=== PATIENT | male | born 1975 | race Caucasian/White ===

== ENCOUNTER 2016-10-25 13:58 | Emergency (ER) | payer OTHER ==
[2016-10-25 14:13] LABS: MANUAL DIFF NEEDED? NO
--- NOTE | 2016-10-25 14:13 | EKG Report ---
Test Performed on : 10/25/2016 2:02:55 PM Test Reason : CHEST PAIN Blood Pressure : / mmHG Vent. Rate : 062 BPM Atrial Rate : 062 BPM P-R Int : 152 ms QRS Dur : 120 ms QT Int : 422 ms P-R-T Axes : 021 -10 013 degrees QTc Int : 428 ms Normal sinus rhythm. Nonspecific intraventricular conduction delay Borderline ECG No previous ECGs available Unconfirmed Result
[2016-10-25 14:16] LABS: BASO% 0.7 % (0.0-0.8); EOS% 3.3 % (0.0-10.0); HEMATOCRIT 40.4 % (42.0-52.0); HEMOGLOBIN 13.6 g/dL (14.0-18.0); IMM GRAN# 0.01 X1000 (0.0-0.04); IMM GRAN% 0.2 % (0.0-0.5); MCH 28.8 PG (27-31); MCHC 33.7 g/dL (33-37); MCV 85.6 FL (81-99); MONO# 0.48 X1000 (0.11-0.59); MONO% 7.8 % (1.7-9.3); MPV 9.5 FL (7.4-10.4); PLT 251 X1000 (130-400); RBC 4.72 XMIL (4.7-6.1)
[2016-10-25 14:30] LABS: AGAP 12; ALBUMIN 4.3 g/dL (3.5-5.0); ALKALINE PHOSPHATASE 96 U/L (32-122); BUN 16 mg/dL (8-22); CALCIUM 8.8 mg/dL (8.8-10.2); CHLORIDE 101 mmol/L (98-107); CK PROFILE 121 U/L (24-204); COSMO 278; GOT 23 U/L (10-34); GPT 20 U/L (10-44); MAGNESIUM 1.8 mg/dL (1.5-2.7); POTASSIUM 3.3 mmol/L (3.5-5.1); SODIUM 137 mmol/L (136-145); TCO2 24 mmol/L (25-35); TOTAL PROTEIN 6.5 g/dL (6.3-8.3)
[2016-10-25 14:36] LABS: INR 0.86 (0.86-1.15)
--- NOTE | 2016-10-25 15:26 | PROVIDER DOCUMENTATION ---
HPI-Syncope/Dizziness - General Source: patient, family - History of Present Illness-Syncope/Dizzy Prior Episodes: reports: no prior history Onset/Duration: reports: just prior to arrival Timing: reports: improving Position/Activity at time of episode: reports: sitting, lying, standing Symptoms prior to episode: reports: visual disturbance, confusion, other ( blurred, dizzy and hot). denies: headache, lightheaded, nausea/vomiting, chest pain, racing heart, abdominal pain, back pain, diaphoresis, injury, recent head trauma, rapid heart beat Context: reports: collapsed Loss of Consciousness: no loss of consciousness Location of injury. (If syncope resulted in an injury.): reports: none Current Symptoms: reports: none/feels normal. denies: fever, chills, sweaty, chest pain, breathing difficulty, short of breath, abdominal pain, nausea, vomiting, shoulder pain, arm pain, weakness, lightheaded, dizzy, headache, pale , weak pulse, headache, blurred vision, lightheaded Recently Seen Here or By Another Healthcare Provider: No - Dizziness Severity in ED: reports: moderate Dizziness Related Current/Associated Symptoms: reports: none/feels normal Any recent trauma/injury?: reports: none Modifying Factors: improves with: nothing Patient usually:: reports: walks without assistance <Sheryl Ibarra - Last Filed: 10/25/16 16:44> <Dario Langley I - Last Filed: 10/25/16 16:54> - General Chief Complaint: Syncope Stated Complaint: syncope Time Seen by Provider: 10/25/16 14:23 Allergies/Adverse Reactions: Patient Allergies Allergy/AdvReac Type Severity Reaction Status Date / Time No Known Allergies Allergy Verified 10/25/16 14:01 Home Medications: Home Medication List Medication Instructions Recorded Confirmed Last Taken Type No Home Medications 10/25/16 10/25/16 Unknown History - History of Present Illness-Syncope/Dizzy Nature of Presenting Problem: Pt is 41 y/o M presents to the ED with dizziness. Pt states woke up fine this am and while at work he started to feel hot and dizzy. Pt states he collapsed but did not have LOC. Pt states got up after collapsing and went to another shop and felt dizzy again. Pt states going to medical and having blurred vision and seeing stuff in ED. Pt states no prior hx. 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 (Sheryl Ibarra) Review of Systems - Adult - REVIEW OF SYSTEMS - ADULT Constitutional: denies: chills, fever Eyes: reports: blurred vision, other (3D vision). denies: double vision Ears, Nose, Mouth & Throat: denies: ear pain, nose pain, throat pain Cardiovascular: denies: chest pain, heart murmur, irregular heart rate Respiratory: denies: cough, shortness of breath, wheezing Gastrointestinal: denies: abdominal pain, diarrhea, frequent heartburn, nausea, poor appetite, vomiting Genitourinary: denies: dysuria, hematuria Musculoskeletal: denies: bone pain, joint pain, neck pain Integumentary: denies: hives, itching Neurological: reports: dizziness/vertigo (dizziness). denies: headache/ migraines, loss of balance, syncope Psychiatric: reports: no symptoms reported Endocrine: reports: no symptoms reported Hematologic/Lymphatic: reports: no symptoms reported Allergic/Immunologic: reports: no symptoms reported All Other Systems: Reviewed and Negative <Sheryl Ibarra - Last Filed: 10/25/16 16:44> Past History - Adult - PAST MEDICAL HISTORY-ADULT Review of Records: reports: Nursing Assessment Review, Medications Reviewed, Social history reviewed & non-contributory. Major Childhood Illnesses: reports: denies history Cardiovascular: reports: denies history Respiratory: reports: denies history Gastrointestinal: reports: denies history Obstetrical/Gynecological: reports: denies history Genitourinary: reports: denies history Musculoskeletal: reports: denies history Neurological: reports: denies history Endocrine/Immune: reports: denies history Other Conditions: reports: denies history - PRIOR SURGERIES/PROCEDURES Surgical/Procedure History: reports: reviewed, not pertinent - IMMUNIZATION STATUS Childhood Immunizations: See Nurse Assessment Flu Vaccine: See Nurse Assessment - FAMILY HISTORY Family History: reviewed, not pertinent - SOCIAL HISTORY Smoking: denies Substance Use: denies Living Situation: family <Sheryl Ibarra - Last Filed: 10/25/16 16:44> Physical Exam-General - PHYSICAL EXAM-ADULT Initial Vital Signs Reviewed: Yes - CONSTITUTIONAL General Appearance: appears well, alert, no apparent distress - EYES Eyes: PERRL/EOMI, pink conjunctivae, fundi clear, no AV nicking - HEAD, EARS, NOSE, MOUTH & THROAT HENMT: normocephalic/atraumatic, moist mucous membranes, normal ENT inspection, TMs normal, pharynx normal - NECK Neck: non-tender, full range of motion, supple, normal inspection - RESPIRATORY Respiratory: chest non-tender, lungs clear, normal breath sounds, no pleuratic chest pain, no respiratory distress, no accessory muscle use - CARDIOVASCULAR Cardiovascular: normal peripheral pulses, regular rate, rhythm, no edema, no gallop, no JVD, no murmur - GASTROINTESTINAL (ABDOMEN) Abdominal Exam: normal bowel sounds, non tender, soft, no organomegaly, no pulsatile mass - LYMPHATIC Lymphatic: no adenopathy - MUSCULOSKELETAL Back Exam: normal inspection, no CVA tenderness, no vertebral tenderness Extremity: normal range of motion, non-tender, normal inspection, no pedal edema , no calf tenderness, normal capillary refill, pelvis stable - SKIN Integumentary: normal color, normal turgor, warm/dry - NEUROLOGIC Neurologic: grossly normal - PSYCHIATRIC Psych/Mental Status: normal mood/affect, oriented x 3 <Sheryl Ibarra - Last Filed: 10/25/16 16:44> Progress - EKG 1 Time of EKG reading by physician:: 14:02 EKG Read and Signed by:: Dario Langley EKG Interpretation (*Must complete 3 of following elements*): Abnormal Rate: 62 Rhythm: normal sinus rhythm Comments: nonspecific intraventricular conduction delay - CT/MRI 1 CT Study: Head Impression: Normal CT Results: no acute intracranial abnormality is appreciated <Sheryl Ibarra - Last Filed: 10/25/16 16:44> <Dario Langley I - Last Filed: 10/25/16 16:54> - PLAN OF CARE/RESULTS Progress/Plan/Lab Results: Laboratory Tests 10/25/16 10/25/16 10/25/16 14:08 14:08 14:08 WBC RBC Hgb Hct MCV MCH MCHC RDW Std Deviation Plt Count MPV Immature Gran % (Auto) Neut % (Auto) Lymph % (Auto) [place] % (Auto) Eos % (Auto) Baso % (Auto) Immature Gran # (Auto) Neut # (Auto) Lymph # (Auto) [place] # (Auto) Eos # (Auto) Baso # (Auto) PT INR APTT (Factor Assay) Sodium 137 Potassium 3.3 L Chloride 101 Carbon Dioxide 24 L Anion Gap 12 BUN 16 Creatinine 0.8 Estimated GFR/1.73 m2 > 60 BUN/Creatinine Ratio 20 Glucose 160 H Calculated Osmolality 278 Calcium 8.8 Magnesium 1.8 Total Bilirubin 0.20 AST 23 ALT 20 Alkaline Phosphatase 96 Creatine Kinase 121 Troponin T < 0.010 Muv-[id number]-Oyczvmpomew Pept < 5 L Total Protein 6.5 Albumin 4.3 Globulin 2.0 Albumin/Globulin Ratio 2.0 10/25/16 10/25/16 14:08 14:08 WBC 6.14 RBC 4.72 Hgb 13.6 L Hct 40.4 L MCV 85.6 MCH 28.8 MCHC 33.7 RDW Std Deviation 12.9 Plt Count 251 MPV 9.5 Immature Gran % (Auto) 0.2 Neut % (Auto) 44.0 Lymph % (Auto) 44.0 [place] % (Auto) 7.8 Eos % (Auto) 3.3 Baso % (Auto) 0.7 Immature Gran # (Auto) 0.01 Neut # (Auto) 2.71 Lymph # (Auto) 2.70 [place] # (Auto) 0.48 Eos # (Auto) 0.20 Baso # (Auto) 0.04 PT 12.0 L INR 0.86 APTT (Factor Assay) 23.0 Sodium Potassium Chloride Carbon Dioxide Anion Gap BUN Creatinine Estimated GFR/1.73 m2 BUN/Creatinine Ratio Glucose Calculated Osmolality Calcium Magnesium Total Bilirubin AST ALT Alkaline Phosphatase Creatine Kinase Troponin T [id number] Pept Total Protein Albumin Globulin Albumin/Globulin Ratio Orders Category Date Time Status Cardiac Monitoring DIRECTED Care 10/25/16 14:03 Active Oxygen Therapy- ED Nursing DIRECTED Care 10/25/16 14:03 Active Saline Loc NOW Care 10/25/16 14:03 Active CBC WITH ELECTRONIC DIFF [HEME] Stat Lab 10/25/16 14:08 Completed CK PROFILE [SP CHEM] Stat Lab 10/25/16 14:08 Completed COMPREHENSIVE METABOLIC PANEL [CHEM] Stat Lab 10/25/16 14:08 Completed MAGNESIUM [CHEM] Stat Lab 10/25/16 14:08 Completed PRO B-NATRIURETIC PEPTIDE Stat Lab 10/25/16 14:08 Completed PR[address]IME WITH INR PL [COAG] Stat Lab 10/25/16 14:[address] [COAG] Stat Lab 10/25/16 14:08 Completed TROPONIN T Stat Lab 10/25/16 14:08 Completed EKG [EKG] Stat Ther 10/25/16 14:03 Draft Vital Signs - 24 hr 10/25/16 10/25/16 13:58 14:55 Temperature 97.2 F L Pulse Rate 71 62 Respiratory 18 20 Rate Blood Pressure 127/84 149/87 O2 Sat by Pulse 98 97 Oximetry Laboratory Tests 10/25/16 10/25/16 10/25/16 14:08 14:08 14:08 WBC RBC Hgb Hct MCV MCH MCHC RDW Std Deviation Plt Count MPV Immature Gran % (Auto) Neut % (Auto) Lymph % (Auto) [place] % (Auto) Eos % (Auto) Baso % (Auto) Immature Gran # (Auto) Neut # (Auto) Lymph # (Auto) [place] # (Auto) Eos # (Auto) Baso # (Auto) PT INR APTT (Factor Assay) Sodium 137 Potassium 3.3 L Chloride 101 Carbon Dioxide 24 L Anion Gap 12 BUN 16 Creatinine 0.8 Estimated GFR/1.73 m2 > 60 BUN/Creatinine Ratio 20 Glucose 160 H Calculated Osmolality 278 Calcium 8.8 Magnesium 1.8 Total Bilirubin 0.20 AST 23 ALT 20 Alkaline Phosphatase 96 Creatine Kinase 121 Troponin T < 0.010 Loj-W-Nrosimjbjaw Pept < 5 L Total Protein 6.5 Albumin 4.3 Globulin 2.0 Albumin/Globulin Ratio 2.0 Urine Source Urine Color Urine Clarity Urine pH Ur Specific [place] Urine Protein Urine Ketones Urine Blood Urine Nitrite Urine Bilirubin Urine Urobilinogen Urine Microscopic RBC Urine WBC Urine Microscopic WBC Ur Epithelial Cells Urine Bacteria Urine Glucose Urine Opiates Screen Ur Oxycodone Screen Urine Methadone Screen Ur Barbituates Screen Ur Tricyclics Screen Ur Phencyclidine Scrn Ur Amphetamines Screen U Methamphetamines Scrn Urine MDMA Screen U Benzodiazepines Scrn Urine Cocaine Screen U Cannabinoids Screen 10/25/16 10/25/16 10/25/16 14:08 14:08 15:38 WBC 6.14 RBC 4.72 Hgb 13.6 L Hct 40.4 L MCV 85.6 MCH 28.8 MCHC 33.7 RDW Std Deviation 12.9 Plt Count 251 MPV 9.5 Immature Gran % (Auto) 0.2 Neut % (Auto) 44.0 Lymph % (Auto) 44.0 [place] % (Auto) 7.8 Eos % (Auto) 3.3 Baso % (Auto) 0.7 Immature Gran # (Auto) 0.01 Neut # (Auto) 2.71 Lymph # (Auto) 2.70 [place] # (Auto) 0.48 Eos # (Auto) 0.20 Baso # (Auto) 0.04 PT 12.0 L INR 0.86 APTT (Factor Assay) 23.0 Sodium Potassium Chloride Carbon Dioxide Anion Gap BUN Creatinine Estimated GFR/1.73 m2 BUN/Creatinine Ratio Glucose Calculated Osmolality Calcium Magnesium Total Bilirubin AST ALT Alkaline Phosphatase Creatine Kinase Troponin T Vcp-K-Imuxjsgmcls Pept Total Protein Albumin Globulin Albumin/Globulin Ratio Urine Source CLEAN CATCH Urine Color YELLOW Urine Clarity CLEAR Urine pH 5.0 Ur Specific [place] 1.025 Urine Protein TRACE A Urine Ketones NEGATIVE Urine Blood NEGATIVE Urine Nitrite NEGATIVE Urine Bilirubin NEGATIVE Urine Urobilinogen NORMAL Urine Microscopic RBC Not Reportable Urine WBC TRACE A Urine Microscopic WBC <10 Ur Epithelial Cells <10 Urine Bacteria 1+ Urine Glucose NEGATIVE Urine Opiates Screen Ur Oxycodone Screen Urine Methadone Screen Ur Barbituates Screen Ur Tricyclics Screen Ur Phencyclidine Scrn Ur Amphetamines Screen U Methamphetamines Scrn Urine MDMA Screen U Benzodiazepines Scrn Urine Cocaine Screen U Cannabinoids Screen 10/25/16 15:49 WBC RBC Hgb Hct MCV MCH MCHC RDW Std Deviation Plt Count MPV Immature Gran % (Auto) Neut % (Auto) Lymph % (Auto) [place] % (Auto) Eos % (Auto) Baso % (Auto) Immature Gran # (Auto) Neut # (Auto) Lymph # (Auto) [place] # (Auto) Eos # (Auto) Baso # (Auto) PT INR APTT (Factor Assay) Sodium Potassium Chloride Carbon Dioxide Anion Gap BUN Creatinine Estimated GFR/1.73 m2 BUN/Creatinine Ratio Glucose Calculated Osmolality Calcium Magnesium Total Bilirubin AST ALT Alkaline Phosphatase Creatine Kinase Troponin T Odd-U-Xwtoctmeoaq Pept Total Protein Albumin Globulin Albumin/Globulin Ratio Urine Source Urine Color Urine Clarity Urine pH Ur Specific [place] Urine Protein Urine Ketones Urine Blood Urine Nitrite Urine Bilirubin Urine Urobilinogen Urine Microscopic RBC Urine WBC Urine Microscopic WBC Ur Epithelial Cells Urine Bacteria Urine Glucose Urine Opiates Screen NONE DETECTED Ur Oxycodone Screen NONE DETECTED Urine Methadone Screen NONE DETECTED Ur Barbituates Screen NONE DETECTED Ur Tricyclics Screen NONE DETECTED Ur Phencyclidine Scrn NONE DETECTED Ur Amphetamines Screen NONE DETECTED U Methamphetamines Scrn NONE DETECTED Urine MDMA Screen NONE DETECTED U Benzodiazepines Scrn NONE DETECTED Urine Cocaine Screen NONE DETECTED U Cannabinoids Screen NONE DETECTED (Sheryl Ibarra) Departure <Sheryl Ibarra - Last Filed: 10/25/16 16:44> - Departure Time of Disposition Order: 16:53 Certified Medical Emergency: Emergent <Dario Langley I - Last Filed: 10/25/16 16:54> - Departure DIAGNOSIS: Dizziness, Hyperglycemia Disposition: HOME 01 Condition: Stable Referrals: None,PCP [Primary Care Provider] - - Critical Care Note Comments: 1653 follow up with your pcp for hemoglobin A1c evaluation. (Dario Langley I) Physician Attestation - Physician Attestation I, the provider, attest to the following statement:: aDrio Langley Physician documentation Attestation:: This documentation recorded by the scribe accurately reflects the service I personally performed and the decisions made by me. <Dario Langley I - Last Filed: 10/25/16 16:54>
[2016-10-25 15:54] LABS: URINE SOURCE CLEAN CATCH
[2016-10-25 15:57] VITALS: BP 127/84
--- NOTE | 2016-10-25 16:04 | Diag Imaging Result Document ---
PROCEDURE NAME: HEAD W/O CONTRAST - 10/25/[address] SCAN OF THE BRAIN: INDICATION: Dizziness and syncope. FINDINGS: There is cerebral atrophy. There is no evidence for acute infarct or hemorrhage. No hydrocephalus, midline shift, or mass effect is identified. The paranasal sinuses and mastoid air cells are clear. IMPRESSION: No acute intracranial abnormality is appreciated.
[2016-10-25 16:23] LABS: UR AMPHETAMINES QUAL NONE DETECTED (NONE DETECT); UR BARBITUATES QUAL NONE DETECTED (NONE DETECT); UR BENZODIAZEPIN QUAL NONE DETECTED (NONE DETECT); UR CANNABINOIDS QUAL NONE DETECTED (NONE DETECT); UR COCAINE QUAL NONE DETECTED (NONE DETECT); UR MDMA QUAL NONE DETECTED (NONE DETECT); UR METHADONE QUAL NONE DETECTED (NONE DETECT); UR METHAMPHETAMINE QUAL NONE DETECTED (NONE DETECT); UR OPIATES QUAL NONE DETECTED (NONE DETECT); UR OXYCODONE QUAL NONE DETECTED (NONE DETECT); UR PCP QUAL NONE DETECTED (NONE DETECT); UR TCA QUAL NONE DETECTED (NONE DETECT)
[2016-10-25 16:27] LABS: BILIRUBIN URINE NEGATIVE (NEGATIVE); BLOOD URINE NEGATIVE (NEGATIVE); CLARITY CLEAR (CLEAR); COLOR YELLOW; GLUCOSE URINE NEGATIVE (NEGATIVE); LEUKOCYTES URINE TRACE (NEGATIVE); NITRITE URINE NEGATIVE (NEGATIVE); PROTEIN URINE TRACE mg/dL (NEGATIVE); SP GRAVITY URINE 1.025; UROBILINOGEN URINE NORMAL
[2016-10-25 16:31] LABS: URINE CULTURE PL NEEDED? YES; URINE EPITHELIAL CELLS <10 /HPF (<10); URINE WBC <10 /HPF (<10)
== END 2016-10-25 17:27 | disposition home or self-care (01) ==
LOC: P.ED 13:58
DX: R73.9 Hyperglycemia, unspecified (principal); R42 Dizziness and giddiness; R94.31 Abnormal electrocardiogram [ECG] [EKG]; R41.0 Disorientation, unspecified; H53.8 Other visual disturbances; R55 Syncope and collapse
CPT/HCPCS: 70450; 80053; 80305; 81001; 82550; 83735; 83880; 84484; 85025; 85610; 85730; 87088; 93005